=== PATIENT | female | born 1940 | race Caucasian/White ===

== ENCOUNTER 2017-09-28 07:55 | Inpatient (IN) | payer MEDICARE ==
[2017-09-28] VITALS (13 sets, daily range): BP systolic 149–208; BP diastolic 68–124; PULSE 64–91; RESP 18; TEMP 97.8–98.8; O2SAT 94–100
[~2017-09-28] VITALS: Ht 160 cm; Wt 56.6 kg
[2017-09-28] MEDS ORDERED: LABETALOL HCL 100 MG/20 ML VIAL IV PUSH ONE (08:15)
[2017-09-28] MEDS ORDERED: NATE120T PO (08:17)
[2017-09-28] MEDS ORDERED: OMEP20TA93 PO (08:17)
[2017-09-28] MEDS ORDERED: GABA100C4 PO (08:17)
[2017-09-28] MEDS ORDERED: TEMA7.5C PO (08:17)
[2017-09-28] MEDS ORDERED: LEVO125T4 PO (08:17)
[2017-09-28] MEDS ORDERED: MAGN400T2 PO (08:17)
[2017-09-28] MEDS ORDERED: ALBU0.08 NEB (08:17)
[2017-09-28] MEDS ORDERED: FURO1TAB60 PO (08:17)
[2017-09-28] MEDS ORDERED: CALTCHW5 PO (08:17)
[2017-09-28] MEDS ORDERED: ATOR40TA16 PO (08:17)
[2017-09-28] MEDS ORDERED: DOCU100C15 PO (08:17)
[2017-09-28] MEDS ORDERED: CALC0.25 PO (08:17)
--- NOTE | 2017-09-28 08:22 | PD ---
HPI Chief Complaint: stroke alert Time Seen by Provider: 08:02 Travel History International Travel<30 days: No Contact w/Intl Traveler<30days: No Traveled to known affect area: No History of Present Illness HPI This patient was brought in as a stroke alert. [facility] to the [facility] because staff there reported a left-sided facial droop and left arm weakness. They reported a duration 30 minutes since she was last seen normal. Paramedics never saw the droop, it had resolved before they arrived. They did note left arm weakness and brought her in. However her left arm weakness has resolved before she gets her period she arrives with no active neurologic deficit and therefore is not a stroke alert anymore. She does not meet any criteria for TPA with no deficit. She reports that she had a stroke 4 years ago. Unfortunately she takes no daily aspirin and continues to smoke. Symptoms were of moderate severity but resolved spontaneously. No alleviating factors. Symptoms likely exacerbated by her continued smoking and noncompliance with basic stroke recommendations. She denies headache. Arrival her blood pressure is 190/125. PFSH Past Medical History Blood Disorders: No Anxiety: Yes Depression: Yes Cancer: No Cardiovascular Problems: Yes Chemotherapy: No Chest Pain: Yes Cerebrovascular Accident: Yes Diabetes: Yes GERD: Yes Genitourinary: No Headaches: Yes Hypertension: Yes Musculoskeletal: No Psychiatric: Yes Respiratory: No Thyroid Disease: Yes (THYROIDISM) Past Surgical History Abdominal Surgery: Yes (HYSTERECTOMY.APPENDECTOMY) Pacemaker: No Social History Alcohol Use: Yes (OCC.) Tobacco Use: Yes (1PKG A DAY) Substance Use: No Allergies-Medications (Allergen,Severity, Reaction): Coded Allergies: Sulfa (Sulfonamide Antibiotics) (Unverified Allergy, Severe, 09/28/17) cephalexin (Unverified Allergy, Severe, 09/28/17) codeine (Unverified Allergy, Severe, 09/28/17) penicillin G (Unverified Allergy, Severe, 09/28/17) Reported Meds & Prescriptions Reported Meds & Active Scripts Active Reported Temazepam 7.5 Mg Cap 7.5 Mg PO HS PRN Levothyroxine (Levothyroxine Sodium) 125 Mcg Tab 125 Mcg PO DAILY Docusate Sodium 100 Mg Cap 100 Mg PO BID PRN Lasix (Furosemide) 40 Mg Tab 40 Mg PO DAILY Nateglinide 120 Mg Tab 120 Mg PO TIDAC Omeprazole 20 Mg Tab 20 Mg PO DAILY PRN Atorvastatin (Atorvastatin Calcium) 40 Mg Tab 40 Mg PO HS Albuterol Neb (Albuterol Sulfate) 2.5 Mg/3 Ml Neb 2.5 Mg NEB Q6HR PRN Gabapentin 100 Mg Cap 100 Mg PO BID Caltrate 600+D Chew (Calcium Carbonate-Vitamin D Chew) 600-400 Mg-Unit Chew 1 Tab PO BID Calcitriol 0.25 Mcg Cap 0.25 Mcg PO DAILY Magnesium Oxide 400 Mg Tab 400 Mg PO DAILY Review of Systems General / Constitutional: No: Fever Eyes: No: Visual changes HENT: No: Headaches Cardiovascular: No: Chest Pain or Discomfort Respiratory: No: Shortness of Breath Gastrointestinal: No: Abdominal Pain Genitourinary: No: Dysuria Musculoskeletal: Positive: Weakness, No: Pain Skin: No Rash Neurologic: Positive: Weakness Psychiatric: No: Depression Endocrine: No: Polydipsia Hematologic/Lymphatic: No: Easy Bruising Physical Exam Narrative GENERAL: Well-nourished, well-developed patient in no apparent distress smelling of nicotine. SKIN: Focused skin assessment reveals no rash and nodules. Skin is Warm and dry. HEAD: Atraumatic. Normocephalic. EYES: Pupils equal and round. No scleral icterus. No injection or drainage. ENT: No nasal bleeding or discharge. Mucous membranes pink and moist. NECK: Trachea midline. No JVD. CARDIOVASCULAR: Regular rate and rhythm. No murmur appreciated. RESPIRATORY: No accessory muscle use. Clear to auscultation. Breath sounds equal bilaterally. GASTROINTESTINAL: Abdomen soft, non-tender, nondistended. Hepatic and splenic margins not palpable. MUSCULOSKELETAL: No obvious deformities. No clubbing. No cyanosis. No edema. NEUROLOGICAL: Awake and alert. No obvious cranial nerve deficits. Motor grossly within normal limits. Normal speech. PSYCHIATRIC: Appropriate mood and affect; insight and judgment poor . Data Data Last Documented VS Vital Signs Date Time Temp Pulse Resp B/P (MAP) Pulse Ox O2 Delivery O2 Flow Rate FiO2 09/28/17 08:33 98.8 86 18 189/124 (145) 100 09/28/17 07:58 Room Air Orders Orders Ct Brain W/O Iv Contrast(Rout) (09/28/17 ) Iv Access Insert/Monitor (09/28/17 08:02) Complete Blood Count With Diff (09/28/17 08:02) Basic Metabolic Panel (Bmp) (09/28/17 08:02) Prothrombin Time / Inr (Pt) (09/28/17 08:02) Act Partial Throm Time (Ptt) (09/28/17 08:02) Electrocardiogram (09/28/17 ) Generator Mechanic / Telemetry JACE.Q8H (09/28/17 08:02) Labetalol Inj (Trandate Inj) (09/28/17 08:15) Potassium Chloride (Kcl) (09/28/17 10:45) Potassium Chloride (Kcl) (09/28/17 10:45) Magnesium (Mg) (09/28/17 10:33) Albuterol Neb (Albuterol Neb) (09/28/17 10:45) Atorvastatin (Lipitor) (09/28/17 21:00) Calcitriol (Rocaltrol) (09/29/17 09:00) Gabapentin (Neurontin) (09/28/17 21:00) Levothyroxine (Synthroid) (09/29/17 09:00) Magnesium Oxide (Mag-Ox) (09/29/17 09:00) (Nf) Calcium Carbonate-Vitamin D Chew (C (09/28/17 21:00) (Nf) Nateglinide (09/28/17 12:00) (Nf) Omeprazole (09/28/17 10:45) Nicotine 21 Mg Patch.24 Hr (Habitrol 21 (09/28/17 10:45) Remove Old Patch (09/28/17 10:45) Admit Order (Ed Use Only) (09/28/17 10:37) Labs Laboratory Tests Test 09/28/17 08:17 White Blood Count 14.2 TH/MM3 Red Blood Count 3.63 MIL/MM3 Hemoglobin 11.8 GM/DL Hematocrit 34.6 % Mean Corpuscular Volume 95.2 FL Mean Corpuscular Hemoglobin 32.5 PG Mean Corpuscular Hemoglobin Concent 34.1 % Red Cell Distribution Width 14.0 % Platelet Count 540 TH/MM3 Mean Platelet Volume 7.8 FL Neutrophils (%) (Auto) 60.9 % Lymphocytes (%) (Auto) 27.9 % Monocytes (%) (Auto) 8.2 % Eosinophils (%) (Auto) 1.5 % Basophils (%) (Auto) 1.5 % Neutrophils # (Auto) 8.6 TH/MM3 Lymphocytes # (Auto) 4.0 TH/MM3 Monocytes # (Auto) 1.2 TH/MM3 Eosinophils # (Auto) 0.2 TH/MM3 Basophils # (Auto) 0.2 TH/MM3 CBC Comment DIFF FINAL Differential Comment Prothrombin Time 10.0 SEC Prothromb Time International Ratio 0.9 RATIO Activated Partial Thromboplast Time 29.2 SEC Blood Urea Nitrogen 16 MG/DL Creatinine 0.52 MG/DL Random Glucose 117 MG/DL Calcium Level 8.7 MG/DL Sodium Level 133 MEQ/L Potassium Level 3.1 MEQ/L Chloride Level 98 MEQ/L Carbon Dioxide Level 28.7 MEQ/L Anion Gap 6 MEQ/L Estimat Glomerular Filtration Rate 115 ML/MIN [facility] Medical Decision Making Medical Screen Exam Complete: Yes Emergency Medical Condition: Yes Medical Record Reviewed: Yes Differential Diagnosis Ischemic CVA, hemorrhagic CVA, TIA, hypertensive emergency Narrative Course I have reviewed the patient's electronic medical record. I reviewed her [facility] paperwork. She is on no aspirin or blood thinners IV placed I gave her 10 mg IV labetalol as even in the face of possible ischemic neurologic disease her diastolic exceeds 120 and therefore is treated. I reviewed her EKG which shows sinus rhythm with no ST elevation or ectopy Extended cardiac monitoring reveals sinus rhythm without ectopy Accu-Chek 104 CBC is normal Metabolic profile shows hypokalemia of 3.1 Coagulation studies are normal Brain CT shows small vessel ischemic disease without hemorrhage She has no neurologic deficit on exam. Her NIH stroke scale is 0. Blood pressure is improved but still elevated but will be watched closely I gave her an aspirin Case reviewed with hospitalist will admit for neurologic evaluation as well as hypertensive urgency Diagnosis Primary Impression: TIA (transient ischemic attack) Qualified Codes: G45.9 - Transient cerebral ischemic attack, unspecified Additional Impression: Hypertensive urgency Admitting Information Admitting Physician Requests: Admit Justin Victoria MD Sep 28, 2017 08:22
[2017-09-28 08:24] LABS: AUTOMATED NEUTROPHIL # 8.6 TH/MM3 (1.8-7.7); BASOPHIL # 0.2 TH/MM3 (0-0.2); BASOPHIL % 1.5 % (0.0-2.0); EOSINOPHIL # 0.2 TH/MM3 (0-0.4); EOSINOPHIL % 1.5 % (0.0-4.0); HEMATOCRIT 34.6 % (35.0-46.0); HEMO FLAGS DIFF FINAL; LYMPH % 27.9 % (9.0-44.0); MEAN CELL VOLUME 95.2 FL (80.0-100.0); MEAN CORPUSCULAR HEMOGLOBIN 32.5 PG (27.0-34.0); MEAN CORPUSCULAR HGB CONC 34.1 % (32.0-36.0); MONO % 8.2 % (0.0-8.0); NEUT % 60.9 % (16.0-70.0); PLATELET COUNT 540 TH/MM3 (150-450); RED BLOOD COUNT 3.63 MIL/MM3 (4.00-5.30); WHITE BLOOD COUNT 14.2 TH/MM3 (4.0-11.0)
--- NOTE | 2017-09-28 08:26 | RADRPT ---
EXAM DATE/TIME: 09/28/2017 08:03 [facility] COMPARISON: No previous studies available for comparison. INDICATIONS : Left sided weakness, since resolved. RADIATION DOSE: 69.28 CTDIvol (mGy) This report was called by Aleja Victoria at 824 MEDICAL HISTORY : Cardiovascular disease. Hypertension. SURGICAL HISTORY : Appendectomy. Hysterectomy. ENCOUNTER: Initial ACUITY: 1 day PAIN SCALE: 0/10 LOCATION: cranial TECHNIQUE: Multiple contiguous axial images were obtained of the head. Using automated exposure control and adj ustment of the mA and/or kV according to patient size, radiation dose was kept as low as reasonably a chievable to obtain optimal diagnostic quality images. DICOM format image data is available electro nically for review and comparison. FINDINGS: CEREBRUM: The ventricles are enlarged. Hypodensity is seen throughout the cerebral white matter. No evidence of midline shift, mass lesion, hemorrhage or acute infarction. No extra-axial fluid collections are se en. POSTERIOR FOSSA: The cerebellum and brainstem are intact. The 4th ventricle is midline. The cerebellopontine angle i s unremarkable. EXTRACRANIAL: The visualized portion of the orbits is intact. SKULL: The calvaria is intact. No evidence of skull fracture. CONCLUSION: 1. Central volume loss with chronic white matter changes characteristic of microvascular ischemic dis ease. 2. No evidence of acute infarct, hemorrhage, mass or edema. Rich Ayala MD on September 28, 2017 at 8:19 Board Certified Radiologist. This report was verified electronically.
[2017-09-28 08:37] LABS: APTT (PATIENT) 29.2 SEC (24.3-30.1); INTERNATIONAL NORMALIZED RATIO 0.9 RATIO
[2017-09-28 08:49] LABS: BICARBONATE 28.7 MEQ/L (21.0-32.0); POTASSIUM 3.1 MEQ/L (3.5-5.1)
[2017-09-28] MEDS ORDERED: SODIUM CHLOR 0.9% 1000 ML INJ 1,000 ML IV SCH (10:36)
[2017-09-28] MEDS ORDERED: RESP: ALBUTEROL 2.5 MG/3 ML NEB (PRN) NEB (10:45)
[2017-09-28] MEDS ORDERED: ACETAMINOPHEN 325 MG TAB PO PRN (10:45)
[2017-09-28] MEDS ORDERED: PANTOPRAZOLE SOD 20 MG DELAYED RELEASE TAB PO PRN (10:45)
[2017-09-28] MEDS ORDERED: SODIUM CHLORIDE 0.9% FLUSH 5 ML FLUSH IV FLUSH PRN (10:45)
[2017-09-28] MEDS ORDERED: POTASSIUM CHLORIDE 20 MEQ CONTROLLED RELEASE TAB PO ONE (10:45)
[2017-09-28] MEDS ORDERED: ONDANSETRON HCL 4 MG/2 ML VIAL IVP PRN (10:45)
[2017-09-28] MEDS ORDERED: MAGNESIUM HYDROXIDE SUSP 30 ML CUP PO PRN (10:45)
[2017-09-28] MEDS ORDERED: SODIUM CHLORIDE 0.9% FLUSH 10 ML FLUSH IV FLUSH PRN (10:45)
[2017-09-28] MEDS ORDERED: LACTULOSE SYRUP 20 GM/30 ML CUP PO PRN (10:45)
[2017-09-28] MEDS ORDERED: NALOXONE HCL 0.4 MG/ML AMP IV PUSH PRN (10:45)
[2017-09-28] MEDS ORDERED: GLUCAGON 1 MG/ML VIAL OTHER PRN (10:45)
[2017-09-28] MEDS ORDERED: SENNOSIDES 8.6 MG TAB PO PRN (10:45)
[2017-09-28] MEDS ORDERED: LABETALOL HCL 100 MG/20 ML VIAL IV PUSH PRN (10:45)
[2017-09-28] MEDS ORDERED: POTASSIUM CHLORIDE 10 MEQ CONTROLLED RELEASE TAB PO ONE (10:45)
[2017-09-28] MEDS ORDERED: DEXTROSE 50% IN WATER 50 ML VIAL(D50) IV PUSH PRN (10:45)
[2017-09-28] MEDS ORDERED: ASPIRIN 325 MG TAB PO ONE (10:45)
[2017-09-28] MEDS ORDERED: BISACODYL 10 MG SUPP RECTAL PRN (10:45)
--- NOTE | 2017-09-28 10:46 | HHI.HP ---
[facility] Unknown Admission Diagnosis Diagnoses: Chief Complaint: left facial droop, left sided weakness Travel History International Travel<30 Days: No Contact w/Intl Traveler <30 Da: No Traveled to Known Affected Are: No History of Present Illness Written by Jazzmine Lang, acting as scribe for Dr. James on 09/28/17 at 10: 58. This note was transcribed by scribe Jazzmine Lang. I, Dr. Niall James personally performed the history, physical exam, and medical decision making; and confirmed the accuracy of the information in the transcribed note. Authenticated by Dr. Niall James on 09/28/17 at 11:07. 77-year-old female with history of hypertension, hyperlipidemia, diabetes mellitus, tobacco use, COPD, CVA, hypothyroidism, GERD, presents from [facility] as a stroke alert with acute onset of left facial droop and left arm weakness 30minutes prior to arrival. Symptoms completely resolved by the time the patient arrived to the ER, therefore stroke alert was cancelled and no TPA was given. The patient states she was sitting up in a chair this morning and she just felt "something strange" as if she was "going to nothing". She tried to call out for the nurse. She states she felt so weak that she could hardly get a breath. The patient does not recall any facial droop or unilateral numbness/weakness however nurse from [facility] reported left facial droop, drooling, and left arm weakness. The patient reports she has been having intermittent frontal headaches recently, rated 8-9/10, associated with some nausea but no vomiting. She states these are her typical headaches, usually relieved by Excedrin. Denies any recent fevers. She does not take any blood thinners. She continues to smoke tobacco. The patient reports she has been at [facility] for right leg weakness and falls. She states she is mostly wheelchair bound because of the weakness. She has no other medical complaints at this time. Review of Systems Except as stated in HPI: all other systems reviewed are Neg Past Family Social History Past Medical History Anxiety Depression CVA Diabetes Mellitus Hypertension Hypothyroidism GERD COPD Past Surgical History Hysterectomy Appendectomy Reported Medications Temazepam 7.5 Mg Cap 7.5 Mg PO HS PRN Levothyroxine (Levothyroxine Sodium) 125 Mcg Tab 125 Mcg PO DAILY Docusate Sodium 100 Mg Cap 100 Mg PO BID PRN Lasix (Furosemide) 40 Mg Tab 40 Mg PO DAILY Nateglinide 120 Mg Tab 120 Mg PO TIDAC Omeprazole 20 Mg Tab 20 Mg PO DAILY PRN Atorvastatin (Atorvastatin Calcium) 40 Mg Tab 40 Mg PO HS Albuterol Neb (Albuterol Sulfate) 2.5 Mg/3 Ml Neb 2.5 Mg NEB Q6HR PRN Gabapentin 100 Mg Cap 100 Mg PO BID Caltrate 600+D Chew (Calcium Carbonate-Vitamin D Chew) 600-400 Mg-Unit Chew 1 Tab PO BID Calcitriol 0.25 Mcg Cap 0.25 Mcg PO DAILY Magnesium Oxide 400 Mg Tab 400 Mg PO DAILY Allergies: Coded Allergies: Sulfa (Sulfonamide Antibiotics) (Unverified Allergy, Severe, 09/28/17) cephalexin (Unverified Allergy, Severe, 09/28/17) codeine (Unverified Allergy, Severe, 09/28/17) penicillin G (Unverified Allergy, Severe, 09/28/17) Active Ordered Medications Current Medications Medications (Trade) Dose Ordered Sig/Junior Route Start Time Stop Time Status Last Admin (Albuterol Neb) 2.5 mg Q6HR NEB PRN NEB 09/28/17 10:45 (Lipitor) 40 mg HS PO 09/28/17 21:00 (Rocaltrol) 0.25 mcg DAILY PO 09/29/17 09:00 (Neurontin) 100 mg BID PO 09/28/17 21:00 (Synthroid) 125 mcg DAILY@0600 PO 09/29/17 06:00 (Mag-Ox) 400 mg DAILY PO 09/29/17 09:00 (Oscal-D 250-125) 500 mg BID PO 09/28/17 21:00 Patient Own Medication PT OWN MED: NATEGLIN... TIDAC PO 09/28/17 12:00 Future Hold (Protonix) 20 mg DAILY PRN PO 09/28/17 10:45 (Habitrol 21 Mg Patch.24 Hr) 1 patch DAILY T-DERMAL 09/28/17 10:45 Miscellaneous Information 1 DAILY T-DERMAL 09/29/17 09:00 Sodium Chloride 1,000 ml @ 70 mls/hr [id number] IV 09/28/17 10:36 (Vasotec Inj) 1.25 mg Q4H PRN IV PUSH 09/28/17 10:45 (Trandate Inj) 10 mg Q2H PRN IV PUSH 09/28/17 10:45 (Aspirin) 325 mg DAILY PO 09/29/17 09:00 (D50w (Vial) Inj) 50 ml UNSCH PRN IV PUSH 09/28/17 10:45 (Glucagon Inj) 1 mg UNSCH PRN OTHER 09/28/17 10:45 (NovoLOG SUPPLEMENTAL SCALE) 1 ACHS SLIDING SCALE SQ 09/28/17 12:00 (NS Flush) 2 ml UNSCH PRN IV FLUSH 09/28/17 10:45 (NS Flush) 2 ml BID IV FLUSH 09/28/17 21:00 (Tylenol) 650 mg Q4H PRN PO 09/28/17 10:45 (Zofran Inj) 4 mg Q6H PRN IVP 09/28/17 10:45 (Tylenol) 650 mg Q6H PRN PO 09/28/17 10:45 (Narcan Inj) 0.4 mg UNSCH PRN IV PUSH 09/28/17 10:45 (Mervat-Colace) 1 tab BID PO 09/28/17 21:00 (Milk Of Magnesia Liq) 30 ml Q12H PRN PO 09/28/17 10:45 (Senokot) 17.2 mg Q12H PRN PO 09/28/17 10:45 (Dulcolax Supp) 10 mg DAILY PRN RECTAL 09/28/17 10:45 (Lactulose Liq) 30 ml DAILY PRN PO 09/28/17 10:45 Family History Denies any family history of stroke Social History Smokes tobacco, 1 PPD Occasional Alcohol Use Denies any illicit drug use , 6months ago Physical Exam Vital Signs Vital Signs Date Time Temp Pulse Resp B/P (MAP) Pulse Ox O2 Delivery O2 Flow Rate FiO2 09/28/17 08:33 98.8 86 18 189/124 (145) 100 09/28/17 07:58 98.8 86 18 189/124 (145) 100 Room Air 09/28/17 07:58 86 18 100 Room Air Physical Exam GENERAL: Well-nourished, well-developed elderly female patient in [facility]. SKIN: Warm and dry. No rash. HEAD: Normocephalic. Atraumatic. EYES: Pupils equal and round. No scleral icterus. No injection or drainage. ENT: No nasal bleeding or discharge. Mucous membranes pink and moist. NECK: Supple. Trachea midline. CARDIOVASCULAR: Regular rate and rhythm. S1, S2 noted. No murmur appreciated. RESPIRATORY: No accessory muscle use. Clear to auscultation. Breath sounds equal bilaterally. GASTROINTESTINAL: Abdomen soft, non-tender, nondistended. Normoactive bowel sounds x4. MUSCULOSKELETAL: No obvious deformities. 1+ bilateral lower extremity pitting edema. NEUROLOGICAL: Awake and alert. No obvious cranial nerve deficits. Motor grossly within normal limits. 5/5 muscle strength in bilateral upper extremities , 5/5 strength bilateral plantar/dorsiflexion, however difficulty raising right leg against resistance. Normal speech. No facial droop, lid lag, tongue deviation. PSYCHIATRIC: Appropriate mood and affect; insight and judgment normal. Laboratory Laboratory Tests Test 09/28/17 08:17 White Blood Count 14.2 Red Blood Count 3.63 Hemoglobin 11.8 Hematocrit 34.6 Mean Corpuscular Volume 95.2 Mean Corpuscular Hemoglobin 32.5 Mean Corpuscular Hemoglobin Concent 34.1 Red Cell Distribution Width 14.0 Platelet Count 540 Mean Platelet Volume 7.8 Neutrophils (%) (Auto) 60.9 Lymphocytes (%) (Auto) 27.9 Monocytes (%) (Auto) 8.2 Eosinophils (%) (Auto) 1.5 Basophils (%) (Auto) 1.5 Neutrophils # (Auto) 8.6 Lymphocytes # (Auto) 4.0 Monocytes # (Auto) 1.2 Eosinophils # (Auto) 0.2 Basophils # (Auto) 0.2 CBC Comment DIFF FINAL Differential Comment Prothrombin Time 10.0 Prothromb Time International Ratio 0.9 Activated Partial Thromboplast Time 29.2 Blood Urea Nitrogen 16 Creatinine 0.52 Random Glucose 117 Calcium Level 8.7 Sodium Level 133 Potassium Level 3.1 Chloride Level 98 Carbon Dioxide Level 28.7 Anion Gap 6 Estimat Glomerular Filtration Rate 115 Result Diagram: 09/28/17 0817 09/28/17 0817 Imaging Last Impressions Head CT 09/28/17 0000 Signed Impressions: Service Date/Time: Thursday, September 28, 2017 08:03 - CONCLUSION: 1. Central volume loss with chronic white matter changes characteristic of microvascular ischemic disease. 2. No evidence of acute infarct, hemorrhage, mass or edema. MD Pito Roman VTE Risk Assessment Caprini VTE Risk Assessment: Mod/High Risk (score >= 2) Caprini Risk Assessment Model Point Value = 1 Point Value = 2 Point Value = 3 Point Value = 5 Age 41-60 Minor surgery BMI > 25 kg/m2 Swollen legs Varicose veins or History of unexplained or recurrent spontaneous Oral contraceptives or hormone replacement Sepsis (< 1 month) Serious lung disease, including pneumonia (< 1 month) Abnormal pulmonary function Acute myocardial infarction Congestive heart failure (< 1 month) History of inflammatory bowel disease Medical patient at bed rest Age 61-74 Arthroscopic surgery Major open surgery (> 45 min) Laparoscopic surgery (> 45 min) Malignancy Confined to bed (> 72 hours) Immobilizing plaster cast Central venous access Age >= 75 History of VTE Family history of VTE Factor V Leiden Prothrombin [id number] Lupus anticoagulant Anticardiolipin antibodies Elevated serum homocysteine Heparin-induced thrombocytopenia Other congenital or acquired thrombophilia Stroke (< 1 month) Elective arthroplasty Hip, pelvis, or leg fracture Acute spinal cord injury (< 1 month) Prophylaxis Regimen Total Risk Factor Score Risk Level Prophylaxis Regimen 0-1 Low Early ambulation 2 Moderate Order ONE of the following: *Sequential Compression Device (SCD) *Heparin 5000 units SQ BID 3-4 Higher Order ONE of the following medications: *Heparin 5000 units SQ TID *Enoxaparin/Lovenox 40 mg SQ daily (WT < 150 kg, CrCl > 30 mL/min) *Enoxaparin/Lovenox 30 mg SQ daily (WT < 150 kg, CrCl > 10-29 mL/min) *Enoxaparin/Lovenox 30 mg SQ BID (WT < 150 kg, CrCl > 30 mL/min) AND/OR *Sequential Compression Device (SCD) 5 or more Highest Order ONE of the following medications: *Heparin 5000 units SQ TID (Preferred with Epidurals) *Enoxaparin/Lovenox 40 mg SQ daily (WT < 150 kg, CrCl > 30 mL/min) *Enoxaparin/Lovenox 30 mg SQ daily (WT < 150 kg, CrCl > 10-29 mL/min) *Enoxaparin/Lovenox 30 mg SQ BID (WT < 150 kg, CrCl > 30 mL/min) AND *Sequential Compression Device (SCD) Assessment and Plan Problem List: (1) TIA (transient ischemic attack) ICD Code: G45.9 - Transient cerebral ischemic attack, unspecified Status: Acute (2) Hypertensive urgency ICD Code: I16.0 - Hypertensive urgency Status: Acute Assessment and Plan 77-year-old female with history of HTN, HLD, DM, COPD, CVA, tobacco use, hypothyroidism, GERD, presents from [facility] as a stroke alert with acute onset of left facial droop and left arm weakness 30minutes prior to arrival. TIA: rule out CVA. +left facial droop and left arm weakness prior to arrival, now resolved. No TPA given. -Head CT images reviewed, shows central volume loss with chronic white matter changes characteristic of microvascular ischemic disease; no acute infarct/hemorrhage -EKG reviewed, shows sinus rhythm -Check brain MRI, head MRA, carotid U/S, echocardiogram, holter monitor -Check lipid panel, HgbA1c -Monitor neuro checks -Monitor on telemetry -Allow permissive hypertension until CVA rule out -Start on aspirin, continue statin -Consult stroke navigator, PT/OT/ST -Consult neurology Hypertensive Urgency secondary to Accelerated Hypertension: BP 190s/120s upon arrival. With neurological deficit as above. -S/p IV Labetalol 10mg x1 in the ED, BP improved to 160s/80s -allowing permissive hypertension as above -IV labetalol and IV vasotec prn SBP > 220 Diabetes Mellitus: chronic -check HgbA1c -monitor Accu-checks, cover with SSI Hyperlipidemia: chronic -check lipid panel -continue patient's statin Leukocytosis: WBC 14.2 K, unclear etiology -check UA and CXR -repeat CBC in am Hyponatremia: Na 133 upon arrival, suspect component of dehydration -give IVF with NS at 70cc/hr -repeat BMP in the am Hypokalemia: K 3.1, suspect secondary to patient's lasix -holding lasix for now -given po KCl replacement -repeat BMP in the am Tobacco Use: chronic -counseled on cessation -nicotine patch All other medical conditions stable, continue home medications as appropriate. DVT Prophylaxis: teds/SCDs Code Status Full Code Discussed Condition With Patient, ER MD, CDU RN Problem Qualifiers (1) TIA (transient ischemic attack): Qualified Codes: G45.9 - Transient cerebral ischemic attack, unspecified Jazzmine Lang PA-C Sep 28, 2017 10:46 Niall James MD Sep 28, 2017 11:08
[2017-09-28] MEDS: NICOTINE 21 MG/24 HR PATCH T-DERMAL SCH (11:58)
[2017-09-28] MEDS ORDERED: NATEGLINIDE 120 MG PO SCH (12:00)
[2017-09-28] MEDS: INSULIN ASPART SUPPLEMENTAL SCALE SQ SCH ×3 (12:00→21:00)
[2017-09-28] MEDS ORDERED: [UNRECOGNIZED DRUG - OTHER] PO SCH (12:00)
--- NOTE | 2017-09-28 12:24 | RADRPT ---
EXAM DATE/TIME: 09/28/2017 11:16 [facility] COMPARISON: No previous studies available for comparison. INDICATIONS : Confusion. Right lower extremity weakness. MEDICAL HISTORY : Hypertension. Diabetes mellitus type 2. SURGICAL HISTORY : Tonsillectomy. Hysterectomy. Appendectomy. ENCOUNTER: Initial ACUITY: 1 day PAIN SCORE: 0/10 LOCATION: cranial Please note a normal MRA of the brain does not entirely exclude the possibility of a small aneurysm, nor the possibility of distal intracranial vessel disease. TECHNIQUE: 3D time of flight MRA was performed. Source images, multiplanar STS MIP, and 3D volume MIP reconstru ctions were reviewed. FINDINGS: There is excellent visualization of the major intracranial arteries out to the second-order branch ve ssels. A 1.5 mm saccular projection is identified of the proximal right anterior cerebral artery. Vessels are otherwise unremarkable. Pleural surfaces are smooth. There is no evidence of irregularity or stenosis. There are no cerebral filling defects. Right vertebral artery is dominant. CONCLUSION: 1. 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 2. Otherwise normal MRA. Rich Ayala MD on September 28, 2017 at 12:15 Board Certified Radiologist. This report was verified electronically.
--- NOTE | 2017-09-28 12:29 | RADRPT ---
EXAM DATE/TIME: 09/28/2017 11:16 [facility] COMPARISON: No previous studies available for comparison. INDICATIONS : Confusion. Right lower extremity weakness. MEDICAL HISTORY : Diabetes mellitus type 2. Hypertension. SURGICAL HISTORY : Tonsillectomy. Appendectomy. Hysterectomy. ENCOUNTER: Initial ACUITY: 1 day PAIN SCORE: 0/10 LOCATION: cranial TECHNIQUE: Multiplanar, multisequence MRI of the brain was performed without contrast. FINDINGS: CEREBRUM: The ventricles are normal for age. A focus of restricted diffusion is identified along the cortical surface of the right insula. No evidence of midline shift, mass lesion, or hemorrhage. No extraaxial fluid collections are seen. The pituitary gland and suprasellar cistern are normal in configuration . WHITE MATTER: Periventricular white matter, deep white matter and brainstem hyperintensity is evident. There is no evidence of associated mass effect or restricted diffusion. POSTERIOR FOSSA: The cerebellum and brainstem are intact. The 4th ventricle is midline. The cerebellopontine angle is unremarkable. The cerebellar tonsils are normal in position. DIFFUSION IMAGING: No other focal areas of restricted diffusion are seen. No evidence of acute infarction. EXTRACRANIAL: The visualized portions of the orbits and paranasal sinuses are unremarkable. CONCLUSION: 1. Moderate white matter hyperintensity in the brainstem and cerebral hemispheres characteristic of c hronic microvascular ischemic disease. 2. Tiny focus of restricted diffusion in the right insula which is adjacent to a middle cerebral nicanor ry vessel and may be artifactual. 3. No evidence of acute infarct or hemorrhage correspond to the patient's symptoms. Rich Ayala MD on September 28, 2017 at 12:23 Board Certified Radiologist. This report was verified electronically.
--- NOTE | 2017-09-28 13:13 | RADRPT ---
EXAM DATE/TIME: 09/28/2017 12:48 [facility] COMPARISON: No previous studies available for comparison. INDICATIONS : Cough MEDICAL HISTORY : Diabetes mellitus type 2. Hypertension. SURGICAL HISTORY : Tonsillectomy. Appendectomy. Hysterectomy. ENCOUNTER: Initial ACUITY: 1 day PAIN SCORE: 0/10 LOCATION: Bilateral chest FINDINGS: A single view of the chest demonstrates the lungs to be hyperinflated but clear of acute infiltrate. There are no effusions. There is some atherosclerotic calcification of the aortic arch and there may be some unusual calcification of the pulmonary artery is well. Heart size is prominent but well compe nsated. Osseous structures are intact with a mild levoscoliosis of the dorsal spine. CONCLUSION: 1. Lungs are hyperinflated but there is no acute infiltrate to explain current clinical symptoms. 2. Heart size is prominent but well compensated. 3. Calcification of the aortic arch. There may be some calcification of the pulmonary artery as well. Dylan Shepard MD on September 28, 2017 at 13:08 Board Certified Radiologist. This report was verified electronically.
--- NOTE | 2017-09-28 15:51 | RADRPT ---
EXAM DATE/TIME: 09/28/2017 14:27 [facility] COMPARISON: No previous studies available for comparison. INDICATIONS : Transient ischemic attack. MEDICAL HISTORY : Hypertension. Gastroesophageal reflux disease. Thyroidism. Left ear deafness. CVA. Chest pain. Diab etes. Depression. Anxiety. SURGICAL HISTORY : Hysterectomy. Appendectomy. Tonsillectomy. Right arm surgery x5. ENCOUNTER: Initial ACUITY: 1 day PAIN SCORE: 5/10 LOCATION: Bilateral neck PEAK SYSTOLIC VELOCITIES (cm/sec): ICA/CCA RATIO: Right: 1.7 Left: 1.2 ICA: Right: 91 Left: 90 CCA: Right: 53 Left: 75 ECA: Right: 107 Left: 86 VERTEBRAL: Right: 71 antegrade Left: 57 antegrade Elevated flow velocities and ICA/CCA ratios have been found to correlate with increased degrees of vessel stenosis, calculated as percentage of diameter relative to a normal segment of distal ICA/CCA FINDINGS: RIGHT CAROTID: Dense atherosclerotic calcification in the distal common carotid artery extending up into the bulb/bi furcation. The waveforms are within normal limits. LEFT CAROTID: Dense atherosclerotic calcification of the distal common carotid artery extending up into the bulb/bi furcation and left internal. The waveforms are within normal limits. VERTEBRAL ARTERIES: Antegrade flow is seen in both vertebral arteries. MISCELLANEOUS: None. CONCLUSION: 1. Dense atherosclerotic calcification in both distal common carotid arteries extending up into the b ifurcations. Calcification also extends up into the internal and the left. 2. Despite the dense calcification, no Doppler findings of a hemodynamically significant stenosis. An tegrade flow in both vertebral arteries Dylan Shepard MD on September 28, 2017 at 15:47 Board Certified Radiologist. This report was verified electronically.
[2017-09-28] MEDS: FUROSEMIDE 40 MG TAB PO SCH (16:46)
[2017-09-28] MEDS: POTASSIUM CHLORIDE 20 MEQ CONTROLLED RELEASE TAB PO SCH (16:46)
[2017-09-28] MEDS: ENALAPRILAT 1.25 MG/ML VIAL IV PUSH PRN (17:23)
[2017-09-28] MEDS: CALCIUM/VITAMIN D 250 MG/125 U TAB PO SCH (20:51)
[2017-09-28] MEDS: GABAPENTIN 100 MG CAP PO SCH (20:51)
[2017-09-28] MEDS: DOCUSATE SODIUM 50 MG/SENNA 8.6 MG TAB PO SCH (20:52)
[2017-09-28] MEDS ORDERED: SODIUM CHLORIDE 0.9% FLUSH 5 ML FLUSH IV FLUSH SCH (21:00)
[2017-09-28] MEDS ORDERED: SODIUM CHLORIDE 0.9% FLUSH 10 ML FLUSH IV FLUSH SCH (21:00)
[2017-09-28] MEDS ORDERED: ATORVASTATIN 40 MG TAB PO SCH (21:00)
[2017-09-29] VITALS (11 sets, daily range): BP systolic 126–221; BP diastolic 64–102; PULSE 82–89; RESP 16–22; TEMP 97.2–98.5; O2SAT 93–97
[2017-09-29] MEDS: ENALAPRILAT 1.25 MG/ML VIAL IV PUSH PRN (04:19)
[2017-09-29] MEDS: LEVOTHYROXINE SODIUM 100 MCG TAB PO SCH (04:58)
[2017-09-29] MEDS: LEVOTHYROXINE SODIUM 112 MCG TAB PO SCH (04:58)
[2017-09-29] MEDS: LEVOTHYROXINE SODIUM 50 MCG TAB PO SCH (04:58)
[2017-09-29 05:10] LABS: AUTOMATED NEUTROPHIL # 7.2 TH/MM3 (1.8-7.7); BASOPHIL # 0.1 TH/MM3 (0-0.2); BASOPHIL % 1.1 % (0.0-2.0); EOSINOPHIL # 0.3 TH/MM3 (0-0.4); EOSINOPHIL % 1.9 % (0.0-4.0); HEMATOCRIT 31.7 % (35.0-46.0); HEMO FLAGS DIFF FINAL; LYMPH % 36.4 % (9.0-44.0); LYMPHOCYTE # 4.9 TH/MM3 (1.0-4.8); MEAN CORPUSCULAR HEMOGLOBIN 31.5 PG (27.0-34.0); MEAN CORPUSCULAR HGB CONC 33.5 % (32.0-36.0); MONO % 7.5 % (0.0-8.0); NEUT % 53.1 % (16.0-70.0); PLATELET COUNT 519 TH/MM3 (150-450); RED BLOOD COUNT 3.37 MIL/MM3 (4.00-5.30); RED CELL DISTRIBUTION WIDTH 13.8 % (11.6-17.2); WHITE BLOOD COUNT 13.5 TH/MM3 (4.0-11.0)
[2017-09-29 05:36] LABS: ALT (GPT) 12 U/L (10-53); ANION GAP 6 MEQ/L (5-15); AST (GOT) 15 U/L (15-37); BICARBONATE 28.1 MEQ/L (21.0-32.0); BLOOD UREA NITROGEN 14 MG/DL (7-18); CHLORIDE 100 MEQ/L (98-107); GLOMERULAR FILTRATION RATE 123 ML/MIN (>89); POTASSIUM 3.7 MEQ/L (3.5-5.1); SODIUM (NA) 134 MEQ/L (136-145)
[2017-09-29 05:38] LABS: ALKALINE PHOSPHATASE 63 U/L (45-117); HDL CHOLESTEROL 49.4 MG/DL (40.0-60.0); LDL CHOLESTEROL 112 MG/DL (0-99); TOTAL BILIRUBIN ADULT LESS THAN 0.1 MG/DL (0.2-1.0)
[2017-09-29] MEDS ORDERED: LEVOTHYROXINE SODIUM 125 MCG TAB PO SCH (06:00)
[2017-09-29] MEDS ORDERED: SODIUM CHLOR 0.9% 1000 ML INJ 1,000 ML IV SCH (06:37)
[2017-09-29] MEDS ORDERED: GLUCAGON 1 MG/ML VIAL OTHER PRN (06:45)
[2017-09-29] MEDS ORDERED: DEXTROSE 50% IN WATER 50 ML VIAL(D50) IV PUSH PRN (06:45)
[2017-09-29] MEDS ORDERED: SODIUM CHLORIDE 0.9% FLUSH 5 ML FLUSH IV FLUSH PRN (06:45)
--- NOTE | 2017-09-29 07:27 | MB ---
cc: NEERAJ CISNEROS M.D. DATE OF CONSULTATION 09/29/2017 REASON FOR CONSULTATION TIA. HISTORY OF PRESENT ILLNESS Ms. Guerrero is a 77-year-old woman, resident of a [facility], who yesterday suddenly developed left-sided weakness. Initially a Stroke Alert was called. However, she had rapid resolution of the symptoms and the Stroke Alert was cancelled because of the resolution back to normal. She has continued to do well with no recurrent weakness on the left side. She denies any prior history of stroke or TIA. She has been hypertensive, in the ER blood of pressure 190/125 which has responded to Vasotec. PAST MEDICAL HISTORY 1. Remarkable for COPD. 2. Hyperlipidemia. 3. Diabetes. 4. Hypertension. 5. Hypothyroidism. 6. Gastroesophageal reflux disease. 7. Anxiety, depression. 8. Hysterectomy. 9. Appendectomy. MEDICATIONS Her medications in the [facility] - 1. Temazepam. 2. Levothyroxine. 3. Docusate. 4. Lasix. 5. Notaglamide. 6. Omeprazole. 7. Atorvastatin. 8. Albuterol. 9. Gabapentin. 10. Caltrate. 11. Calcitriol. ALLERGIES SULFA. CEPHALEXIN. CODEINE. PENICILLIN. NEUROLOGIC EXAMINATION VITAL SIGNS: Blood pressure is 196/91, pulse 85, respiratory rate is 18, temperature 97 degrees. HIGHER CORTICAL FUNCTION: She is alert, oriented. She follows commands. Speech is normal. CRANIAL NERVES: Intact. There is no facial asymmetry. MOTOR EXAMINATION: She demonstrates 5/5 strength of all major groups in both upper and lower extremities. There is no drift. Fine motor skills normal. REFLEXES: Symmetric. CEREBELLAR TESTING: Normal with no dysmetria, no ataxia. IMAGING STUDIES CT scan of the brain shows atrophy, chronic ischemic change. No acute change present. MRI of the brain - No evidence of any definite acute infarction. There was a small area of restricted diffusion in the right insula adjacent to the MCA, may be artifactual. MRA brain is normal except for a tiny atypical aneurysm in the proximal right KAIT but there is no evidence of any large vessel occlusion. The aneurysm measures 1.5 mm. Carotid ultrasound shows calcification in the carotids but no evidence of any significant stenosis. LABORATORY DATA The white count is 13,500, hemoglobin 10.6, hematocrit 31.7% platelet 519,000. PTT 10, INR 0.9, APTT 29.2. Sodium is 134, potassium 3.7, chloride 100, CO2 28, BUN is 14, creatinine 0.49, GFR is 123, AST 15, ALT is 12, cholesterol 227, LDL 112, triglycerides 329, HDL 49.4. EKG Sinus rhythm, first-degree AV block. IMPRESSION Right hemispheric TIA which has resolved completely. I agree that the patient was not a candidate for t-PA given the rapid resolution of symptoms. The MRI is reviewed. There is a small area of diffusion image in the right insula which could be artifactual but this may be represent a very tiny area of completed infarction which is asymptomatic since it does correlate with the side of probable ischemia which would have caused her left-sided weakness. RECOMMENDATIONS 1. At the present time would recommend obtaining echocardiogram, also monitor cardiac telemetry to be sure she does not have atrial fibrillation. 2. She has been started on aspirin. Continue aspirin. 3. Also I agree with the Lipitor given the high LDL. 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 Due to the very small size of the aneurysm, would recommend just following this, repeating an MRA in about 6 months. MD JAMES Calloway/EPIFANIO /6:39 AM /8:42 AM
[2017-09-29] MEDS: INSULIN ASPART SUPPLEMENTAL SCALE SQ SCH ×4 (08:00→20:21)
--- NOTE | 2017-09-29 08:22 | RADRPT ---
EXAM DATE/TIME: 09/29/2017 07:51 [facility] COMPARISON: No previous studies available for comparison. INDICATIONS : Right leg swelling. MEDICAL HISTORY : Hypercholesterolemia. Gastroesophageal reflux disease. Hypertension. CVA. Diabetes. SURGICAL HISTORY : Hysterectomy. Appendectomy. Tonsillectomy. Orthopedic surgery, right arm. ENCOUNTER: Initial ACUITY: 1 day PAIN SCORE: 0/10 LOCATION: Right leg. TECHNIQUE: Venous ultrasound of the leg was performed from the inguinal ligament to the proximal calf. Real-oliver e, color Doppler and spectral tracing, compression and augmentation techniques were used. FINDINGS: There is normal compressibility of the deep venous system from the inguinal region to the proximal ca lf. No echogenic clot is seen in the lumen of the common femoral, femoral, popliteal, and posterior tibial veins. There is a normal response of the venous system to proximal and distal augmentation an d respiration. CONCLUSION: Normal examination. Baljinder Croft Jr., MD on September 29, 2017 at 8:09 Board Certified Radiologist. This report was verified electronically.
[2017-09-29] MEDS ORDERED: ASPIRIN 325 MG TAB PO SCH (09:00)
[2017-09-29] MEDS: REMOVE OLD PATCH T-DERMAL SCH (09:00)
[2017-09-29] MEDS: SODIUM CHLORIDE 0.9% FLUSH 5 ML FLUSH IV FLUSH SCH ×2 (09:00→20:20)
[2017-09-29] MEDS: NICOTINE 21 MG/24 HR PATCH T-DERMAL SCH (09:32)
[2017-09-29] MEDS: POTASSIUM CHLORIDE 20 MEQ CONTROLLED RELEASE TAB PO SCH (09:33)
[2017-09-29] MEDS: ASPIRIN 81 MG CHEW TAB PO SCH (09:33)
[2017-09-29] MEDS: DOCUSATE SODIUM 50 MG/SENNA 8.6 MG TAB PO SCH ×2 (09:33→20:20)
[2017-09-29] MEDS: MAGNESIUM OXIDE 400 MG TAB PO SCH (09:34)
[2017-09-29] MEDS: CALCIUM/VITAMIN D 250 MG/125 U TAB PO SCH ×2 (09:35→20:21)
[2017-09-29] MEDS: GABAPENTIN 100 MG CAP PO SCH ×2 (09:35→20:21)
[2017-09-29] MEDS: FUROSEMIDE 40 MG TAB PO SCH (09:36)
[2017-09-29] MEDS ORDERED: amLODIPine BESYLATE 5 MG TAB PO ONE (10:15)
[2017-09-29] MEDS: CALCITRIOL 0.25 MCG CAP PO SCH (10:22)
--- NOTE | 2017-09-29 12:51 | HHI.PR ---
Subjective Remarks Follow-up TIA. Patient doing okay. Aware she will be started on aspirin and Norvasc, Lipitor will be increased as well as Synthroid and possibly be discharged later today if BP improves and echocardiogram unremarkable. Holter monitor has also been ordered. Tobacco cessation. Discussed with RN Objective Vitals Vital Signs Date Time Temp Pulse Resp B/P (MAP) Pulse Ox O2 Delivery O2 Flow Rate FiO2 09/29/17 11:54 97.2 88 22 195/95 (128) 95 09/29/17 08:00 83 09/29/17 07:30 98.5 88 20 182/84 (116) 95 Automatic Cuff 09/29/17 03:46 97.8 85 18 196/91 (126) 97 09/28/17 23:49 97.8 82 18 149/68 (95) 97 09/28/17 23:00 64 09/28/17 19:32 98.1 91 18 180/79 (112) 94 09/28/17 19:29 96 09/28/17 18:02 169/90 (116) 09/28/17 17:36 89 09/28/17 17:10 204/84 (124) 09/28/17 17:09 208/91 (130) 09/28/17 13:59 98.1 84 18 181/92 (121) 96 09/28/17 13:32 I/O 09/28/17 09/28/17 09/28/17 09/29/17 09/29/17 09/29/17 07:00 15:00 23:00 07:00 15:00 23:00 Intake Total 120 ml Balance 120 ml Intake Oral 120 ml # Voids 2 # Bowel Movements 0 Result Diagram: 09/29/17 0418 09/29/17 0418 Imaging Last Impressions Lower Extremity Ultrasound 09/29/17 0000 Signed Impressions: Service Date/Time: Friday, September 29, 2017 07:51 - CONCLUSION: Normal examination. Baljinder Croft Jr., MD Head Magnetic Resonance Angiography 09/28/17 0000 Signed Impressions: Service Date/Time: Thursday, September 28, 2017 11:16 - CONCLUSION: 1. 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 2. Otherwise normal MRA. Rich Ayala MD Head CT 09/28/17 0000 Signed Impressions: Service Date/Time: Thursday, September 28, 2017 08:03 - CONCLUSION: 1. Central volume loss with chronic white matter changes characteristic of microvascular ischemic disease. 2. No evidence of acute infarct, hemorrhage, mass or edema. Rich Ayala MD Chest X-Ray 09/28/17 0000 Signed Impressions: Service Date/Time: Thursday, September 28, 2017 12:48 - CONCLUSION: 1. Lungs are hyperinflated but there is no acute infiltrate to explain current clinical symptoms. 2. Heart size is prominent but well compensated. 3. Calcification of the aortic arch. There may be some calcification of the pulmonary artery as well. Dylan Shepard MD Carotid Artery Ultrasound 09/28/17 0000 Signed Impressions: Service Date/Time: Thursday, September 28, 2017 14:27 - CONCLUSION: 1. Dense atherosclerotic calcification in both distal common carotid arteries extending up into the bifurcations. Calcification also extends up into the internal and the left. 2. Despite the dense calcification, no Doppler findings of a hemodynamically significant stenosis. Antegrade flow in both vertebral arteries Dylan Shepard MD Brain MRI 09/28/17 0000 Signed Impressions: Service Date/Time: Thursday, September 28, 2017 11:16 - CONCLUSION: 1. Moderate white matter hyperintensity in the brainstem and cerebral hemispheres characteristic of chronic microvascular ischemic disease. 2. Tiny focus of restricted diffusion in the right insula which is adjacent to a middle cerebral artery vessel and may be artifactual. 3. No evidence of acute infarct or hemorrhage correspond to the patient's symptoms. Rich Ayala MD Objective Remarks GENERAL: Well-nourished, well-developed elderly female patient in [facility]. SKIN: Warm and dry. No rash. CARDIOVASCULAR: Regular rate and rhythm. S1, S2 noted. No murmur appreciated. RESPIRATORY: No accessory muscle use. Clear to auscultation. Breath sounds equal bilaterally. GASTROINTESTINAL: Abdomen soft, non-tender, nondistended. Normoactive bowel sounds x4. MUSCULOSKELETAL: No obvious deformities. 1+ bilateral lower extremity pitting edema. NEUROLOGICAL: Awake and alert. No obvious cranial nerve deficits. Motor grossly within normal limits. 5/5 muscle strength in bilateral upper extremities , 5/5 strength bilateral plantar/dorsiflexion, however difficulty raising right leg against resistance of and (chronic). Normal speech. No facial droop, lid lag, tongue deviation. PSYCHIATRIC: Appropriate mood and affect; insight and judgment normal. Procedures None A/P Problem List: (1) TIA (transient ischemic attack) ICD Code: G45.9 - Transient cerebral ischemic attack, unspecified Status: Acute (2) Hypertensive urgency ICD Code: I16.0 - Hypertensive urgency Status: Acute Assessment and Plan 77-year-old female with history of HTN, HLD, DM, COPD, CVA, tobacco use, hypothyroidism, GERD, presents from [facility] as a stroke alert with acute onset of left facial droop and left arm weakness 30minutes prior to arrival. TIA: rule out CVA. +left facial droop and left arm weakness prior to arrival, now resolved. No TPA given. -Head CT images reviewed, shows central volume loss with chronic white matter changes characteristic of microvascular ischemic disease; no acute infarct/hemorrhage -EKG reviewed, shows sinus rhythm -Unremarkable brain MRI, head MRA, carotid U/S is a tiny aneurysm which according to neurologist incidental repeat MRA in 6 months. Follow-up Echocardiogram, holter monitor -Ldl 112 increase Lipitor to 80 mg at bedtime, follow-up HgbA1c -Monitor neuro checks -Monitor on telemetry -Discontinue permissive hypertension -Continue aspirin -Consult stroke navigator, PT/OT/ST -Consulted neurology Hypertensive Urgency secondary to Accelerated Hypertension: BP 190s/120s upon arrival. With neurological deficit as above. Improving but suboptimal control. Start Norvasc -IV labetalol and IV vasotec prn SBP > 220 Diabetes Mellitus: chronic -check HgbA1c -monitor Accu-checks, cover with SSI Hyperlipidemia: chronic As above Leukocytosis: WBC 14.2 K, unclear etiology. Improving -check UA negative CXR Hyponatremia: Na 133 upon arrival, suspect component of dehydration -repeat BMP show sodium level is improving Hypokalemia: K 3.1, suspect secondary to patient's lasix -given po KCl replacement -repeat BMP shows improvement Tobacco Use: chronic -counseled on cessation -nicotine patch All other medical conditions stable, continue home medications as appropriate. DVT Prophylaxis: teds/SCDs Discharge Planning Discharge patient to inpatient rehabilitation versus SNF Condition on discharge: Improved Regular Diet as tolerated Ad Angela activity no driving Rx written: Aspirin, Lipitor, Norvasc and Synthroid Follow-up with primary care physician Problem Qualifiers (1) TIA (transient ischemic attack): Qualified Codes: G45.9 - Transient cerebral ischemic attack, unspecified Niall James MD Sep 29, 2017 12:51
[2017-09-29] MEDS ORDERED: SYNT112T PO (12:54)
[2017-09-29] MEDS ORDERED: POTA20TA5 PO (12:54)
[2017-09-29] MEDS ORDERED: ASPI81 PO (12:54)
[2017-09-29] MEDS ORDERED: AMLO5 PO (12:54)
[2017-09-29] MEDS ORDERED: LEVO.1 PO (12:54)
[2017-09-29] MEDS ORDERED: LEVO.05 PO (12:54)
[2017-09-29] MEDS ORDERED: ATOR80TA45 PO (12:54)
[2017-09-29] MEDS: cloNIDine HCL 0.1 MG TAB PO PRN (12:57)
--- NOTE | 2017-09-29 12:59 | HHI.DCPOC ---
Discharge Care Plan Diagnosis: (1) TIA (transient ischemic attack) (2) Aneurysm (3) Hypertensive urgency (4) Dyslipidemia Goals to Promote Your Health * To prevent worsening of your condition and complications * To maintain your health at the optimal level Directions to Meet Your Goals Please quit smoking Incidental finding of right cerebral artery aneurysm - please follow up with MRA in 6 months Take your medications as prescribed Follow your dietary instruction Follow activity as directed Keep your appointments as scheduled Take your immunizations and boosters as scheduled If your symptoms worsen call your PCP, if no PCP go to Urgent Care Center or Emergency Room Smoking is Dangerous to Your Health. Avoid second hand smoke Call the 24-hour hour crisis hotline for domestic abuse at Charity Soriano Sep 29, 2017 12:59
--- NOTE | 2017-09-29 17:42 | ECHRPT ---
Indication: CVA/TIA CONCLUSIONS Normal left ventricular size. Mild concentric left ventricular hypertrophy. The left ventricular systolic function is hyperdynamic with an estimated ejection fraction in the ra nge of 65- 70%. The left atrial size is moderately dilated. [id number] mitral valve regurgitation. Aortic valve sclerosis is present. There is trace tricuspid valve regurgitation. BP: 206 / 97 HR: 89 Rhythm: Sinus MEASUREMENTS (Male / Female) Normal Values Technical Quality:Fair 2D ECHO LV Diastolic Diameter PLAX 3.2 cm 4.2 - 5.9 / 3.9 - 5.3 cm LV Systolic Diameter PLAX 2.1 cm IVS Diastolic Thickness 1.2 cm 0.6 - 1.0 / 0.6 - 0.9 cm LVPW Diastolic Thickness 1.2 cm 0.6 - 1.0 / 0.6 - 0.9 cm LV Relative Wall Thickness 0.7 LVOT Diameter 2.2 cm Aortic Root Diameter 3.0 cm LA Systolic Diameter LX 3.2 cm 3.0 - 4.0 / 2.7 - 3.8 cm DOPPLER AV Peak Velocity 190.5 cm/s AV Peak Gradient 14.5 mmHg AV Mean Gradient 8.0 mmHg AV Velocity Time Integral 36.8 cm LVOT Peak Velocity 148.0 cm/s LVOT Peak Gradient 8.8 mmHg LVOT Velocity Time Integral 28.0 cm AV Area Cont Eq vti 2.9 cm AV Area Cont Eq pk 3.0 cm Mitral E Point Velocity 91.7 cm/s Mitral A Point Velocity 135.0 cm/s Mitral E to A Ratio 0.7 LV E' Lateral Velocity 4.3 cm/s Mitral E to LV E' Lateral Ratio 21.4 LV E' Septal Velocity 6.0 cm/s Mitral E to LV E' Septal Ratio 15.2 TR Peak Velocity 248.0 cm/s TR Peak Gradient 25.0 mmHg Right Atrial Pressure 10.0 mmHg Pulmonary Artery Systolic Pressu 34.6 mmHg Right Ventricular Systolic Press 34.6 mmHg PV Peak Velocity 53.4 cm/s PV Peak Gradient 1.1 mmHg FINDINGS LEFT VENTRICLE Normal left ventricular size. Mild concentric left ventricular hypertrophy. The left ventricular systolic function is hyperdynamic with an estimated ejection fraction in the ra nge of 65- 70%. LEFT ATRIUM The left atrial size is moderately dilated. MITRAL VALVE [id number] mitral valve regurgitation. AORTIC VALVE Aortic valve sclerosis is present. TRICUSPID VALVE There is trace tricuspid valve regurgitation. Debora Heart MD, FACC (Electronically Signed) Final Date:29 September 2017 17:41
--- NOTE | 2017-09-29 19:12 | EKG ---
Date Performed: 09/28/2017 Time Performed: 08:04:08 PTAGE: 77 years EKG: Sinus rhythm WITH FIRST DEGREE AV BLOCK MARKED RIGHT AXIS DEVIATION LOW QRS VOLTAGE IN EXTREMITY LEADS SEPTAL BRYCE CARDIAL INFARCTION ABNORMAL ECG Since PREVIOUS TRACING , no significant change noted PREVIOUS TRACIN03/23/2004 07.58 DOCTOR: Clau Kamara Interpretating Date/Time 09/29/2017 19:10:00
[2017-09-29] MEDS: ATORVASTATIN 80 MG TAB PO SCH (20:21)
[2017-09-29] MEDS ORDERED: TEMAZEPAM 7.5 MG CAP PO ONE (22:45)
[2017-09-29 22:46] LABS: HEMOGLOBIN A1a 1.8 %; HEMOGLOBIN A1b 1.9 %; HEMOGLOBIN Ao 84.8 %; HEMOGLOBIN LA1C 1.5 %; HEMOGLOBIN P3 3.5 %
[2017-09-30] VITALS (8 sets, daily range): BP systolic 138–194; BP diastolic 65–89; PULSE 74–82; RESP 18–22; TEMP 97.3–98.3; O2SAT 92–97
[2017-09-30] MEDS: ACETAMINOPHEN 325 MG TAB PO PRN ×3 (01:04→18:08)
[2017-09-30] MEDS: LEVOTHYROXINE SODIUM 112 MCG TAB PO SCH (06:16)
[2017-09-30] MEDS: LEVOTHYROXINE SODIUM 100 MCG TAB PO SCH (06:16)
[2017-09-30] MEDS: LEVOTHYROXINE SODIUM 50 MCG TAB PO SCH (06:16)
[2017-09-30] MEDS: INSULIN ASPART SUPPLEMENTAL SCALE SQ SCH ×4 (08:00→21:00)
[2017-09-30] MEDS: REMOVE OLD PATCH T-DERMAL SCH (08:33)
[2017-09-30] MEDS: NICOTINE 21 MG/24 HR PATCH T-DERMAL SCH (08:33)
[2017-09-30] MEDS: CALCITRIOL 0.25 MCG CAP PO SCH (08:34)
[2017-09-30] MEDS: ASPIRIN 81 MG CHEW TAB PO SCH (08:34)
[2017-09-30] MEDS: GABAPENTIN 100 MG CAP PO SCH ×2 (08:34→20:09)
[2017-09-30] MEDS: POTASSIUM CHLORIDE 20 MEQ CONTROLLED RELEASE TAB PO SCH (08:35)
[2017-09-30] MEDS: DOCUSATE SODIUM 50 MG/SENNA 8.6 MG TAB PO SCH ×2 (08:35→20:09)
[2017-09-30] MEDS: CALCIUM/VITAMIN D 250 MG/125 U TAB PO SCH ×2 (08:35→20:09)
[2017-09-30] MEDS: FUROSEMIDE 40 MG TAB PO SCH (08:35)
[2017-09-30] MEDS: MAGNESIUM OXIDE 400 MG TAB PO SCH (08:35)
[2017-09-30] MEDS: SODIUM CHLORIDE 0.9% FLUSH 5 ML FLUSH IV FLUSH SCH ×2 (08:36→20:08)
--- NOTE | 2017-09-30 08:48 | HHI.PR ---
Subjective Remarks Follow-up for TIA. Patient is currently doing well. Denies any chest pain, shortness of breath, fever or chills. She only has 2 days left for SNF. She does not wish to go to SNF due to high co-pay. Objective Vitals Vital Signs Date Time Temp Pulse Resp B/P (MAP) Pulse Ox O2 Delivery O2 Flow Rate FiO2 09/30/17 08:00 97.9 79 18 168/79 (108) 97 Manual Cuff/Auscultation 09/30/17 04:00 98.0 74 19 138/65 (89) 94 09/30/17 00:00 97.4 82 18 147/80 (102) 93 09/29/17 23:00 82 09/29/17 20:30 82 09/29/17 20:00 98.3 87 18 126/69 (88) 93 09/29/17 16:53 98.1 88 16 129/64 (85) 93 09/29/17 16:35 85 09/29/17 16:24 93 21 09/29/17 12:30 98.1 89 16 221/102 (141) 95 206/97 (133) 09/29/17 11:54 97.2 88 22 195/95 (128) 95 I/O 09/29/17 09/29/17 09/29/17 09/30/17 09/30/17 09/30/17 07:00 15:00 23:00 07:00 15:00 23:00 Intake Total 480 ml Balance 480 ml Intake Oral 480 ml # Voids 2 Result Diagram: 09/29/17 0418 09/29/17 0418 Imaging Last Impressions Lower Extremity Ultrasound 09/29/17 0000 Signed Impressions: Service Date/Time: Friday, September 29, 2017 07:51 - CONCLUSION: Normal examination. Baljinder Croft Jr., MD Head Magnetic Resonance Angiography 09/28/17 0000 Signed Impressions: Service Date/Time: Thursday, September 28, 2017 11:16 - CONCLUSION: 1. 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 2. Otherwise normal MRA. Rich Ayala MD Head CT 09/28/17 0000 Signed Impressions: Service Date/Time: Thursday, September 28, 2017 08:03 - CONCLUSION: 1. Central volume loss with chronic white matter changes characteristic of microvascular ischemic disease. 2. No evidence of acute infarct, hemorrhage, mass or edema. Rich Ayala MD Chest X-Ray 09/28/17 0000 Signed Impressions: Service Date/Time: Thursday, September 28, 2017 12:48 - CONCLUSION: 1. Lungs are hyperinflated but there is no acute infiltrate to explain current clinical symptoms. 2. Heart size is prominent but well compensated. 3. Calcification of the aortic arch. There may be some calcification of the pulmonary artery as well. Dylan Shepard MD Carotid Artery Ultrasound 09/28/17 0000 Signed Impressions: Service Date/Time: Thursday, September 28, 2017 14:27 - CONCLUSION: 1. Dense atherosclerotic calcification in both distal common carotid arteries extending up into the bifurcations. Calcification also extends up into the internal and the left. 2. Despite the dense calcification, no Doppler findings of a hemodynamically significant stenosis. Antegrade flow in both vertebral arteries Dylan Shepard MD Brain MRI 09/28/17 Signed Impressions: Service Date/Time: Thursday, September 28, 2017 11:16 - CONCLUSION: 1. Moderate white matter hyperintensity in the brainstem and cerebral hemispheres characteristic of chronic microvascular ischemic disease. 2. Tiny focus of restricted diffusion in the right insula which is adjacent to a middle cerebral artery vessel and may be artifactual. 3. No evidence of acute infarct or hemorrhage correspond to the patient's symptoms. Rich Ayala MD Objective Remarks GENERAL: Alert, oriented 3, NAD. SKIN: Warm and dry. HEAD: Normocephalic. EYES: No scleral icterus. No injection or drainage. NECK: Supple, trachea midline. No JVD or lymphadenopathy. CARDIOVASCULAR: Regular rate and rhythm without murmurs, gallops, or rubs. RESPIRATORY: Breath sounds equal bilaterally. No accessory muscle use. GASTROINTESTINAL: Abdomen soft, non-tender, nondistended. MUSCULOSKELETAL: No cyanosis, or edema. BACK: Nontender without obvious deformity. No CVA tenderness. Procedures None A/P Problem List: (1) TIA (transient ischemic attack) ICD Code: G45.9 - Transient cerebral ischemic attack, unspecified Status: Acute (2) Hypertensive urgency ICD Code: I16.0 - Hypertensive urgency Status: Acute Assessment and Plan 77-year-old female with history of HTN, HLD, DM, COPD, CVA, tobacco use, hypothyroidism, GERD, presents from [facility] as a stroke alert with acute onset of left facial droop and left arm weakness 30minutes prior to arrival. Transient ischemic attack -left facial droop and left arm weakness prior to arrival, now resolved. No TPA given. -Head CT shows central volume loss with chronic white matter changes characteristic of microvascular ischemic disease; no acute infarct/hemorrhage -EKG shows sinus rhythm -Unremarkable brain MRI. MRA brain shows a tiny aneurysm which according to neurologist incidental. Repeat MRA in 6 months. -Echo normal. -Continue aspirin 162 milligrams daily, atorvastatin 80 mg daily at bedtime Accelerated Hypertension: BP 190s/120s upon arrival. With neurological deficit as above. Improving but suboptimal control. - Continue Amlodipine to 5 mg , Lasix 40 mg daily - Add Lisinopril 10mg Qday. - IV Vasotec, Clonidine PRN. Diabetes Mellitus: chronic -HgbA1c 6.2 -monitor Accu-checks, cover with SSI -Will consider Metformin upon discharge. Hypokalemia: K 3.1, suspect secondary to patient's lasix -given po KCl replacement Hypothyroidism - continue levothyroxine 212 g daily. Tobacco Use: chronic -counseled on cessation -nicotine patch Full code. SCDs. Problem Qualifiers (1) TIA (transient ischemic attack): Qualified Codes: G45.9 - Transient cerebral ischemic attack, unspecified Fredy Coello DO Sep 30, 2017 08:48
[2017-09-30] MEDS ORDERED: amLODIPine BESYLATE 5 MG TAB PO SCH (09:00)
[2017-09-30] MEDS ORDERED: LISINOPRIL 10 MG TAB PO ONE (12:30)
[2017-09-30] MEDS: ATORVASTATIN 80 MG TAB PO SCH (20:09)
[2017-09-30] MEDS: cloNIDine HCL 0.1 MG TAB PO PRN (22:27)
[2017-10-01] VITALS: BP 116/59; PULSE 82; RESP 17; TEMP 97.6; O2SAT 94
[2017-10-01 04:00] VITALS: BP 142/82; PULSE 72; RESP 19; TEMP 97.7; O2SAT 96
[2017-10-01] MEDS: LEVOTHYROXINE SODIUM 112 MCG TAB PO SCH (05:46)
[2017-10-01] MEDS: LEVOTHYROXINE SODIUM 100 MCG TAB PO SCH (05:46)
[2017-10-01] MEDS: LEVOTHYROXINE SODIUM 50 MCG TAB PO SCH (05:46)
[2017-10-01 07:24] VITALS: PULSE 77
[2017-10-01 08:00] VITALS: BP 137/84; PULSE 80; RESP 18; TEMP 97.7; O2SAT 95
[2017-10-01] MEDS: INSULIN ASPART SUPPLEMENTAL SCALE SQ SCH ×3 (08:00→17:00)
[2017-10-01] MEDS: DOCUSATE SODIUM 50 MG/SENNA 8.6 MG TAB PO SCH (08:59)
[2017-10-01] MEDS: NICOTINE 21 MG/24 HR PATCH T-DERMAL SCH (08:59)
[2017-10-01] MEDS ORDERED: LISINOPRIL 10 MG TAB PO SCH (09:00)
[2017-10-01] MEDS ORDERED: amLODIPine BESYLATE 5 MG TAB PO SCH (09:00)
[2017-10-01] MEDS: MAGNESIUM OXIDE 400 MG TAB PO SCH (09:00)
[2017-10-01] MEDS: CALCITRIOL 0.25 MCG CAP PO SCH (09:00)
[2017-10-01] MEDS: POTASSIUM CHLORIDE 20 MEQ CONTROLLED RELEASE TAB PO SCH (09:00)
[2017-10-01] MEDS: CALCIUM/VITAMIN D 250 MG/125 U TAB PO SCH (09:00)
[2017-10-01] MEDS: ASPIRIN 81 MG CHEW TAB PO SCH (09:00)
[2017-10-01] MEDS: GABAPENTIN 100 MG CAP PO SCH (09:00)
[2017-10-01] MEDS: SODIUM CHLORIDE 0.9% FLUSH 5 ML FLUSH IV FLUSH SCH (09:01)
[2017-10-01] MEDS: FUROSEMIDE 40 MG TAB PO SCH (09:01)
[2017-10-01] MEDS: REMOVE OLD PATCH T-DERMAL SCH (09:07)
--- NOTE | 2017-10-01 10:04 | HHI.PR ---
Subjective Remarks Follow-up for TIA. Objective Vitals Vital Signs Date Time Temp Pulse Resp B/P (MAP) Pulse Ox O2 Delivery O2 Flow Rate FiO2 10/01/17 08:00 97.7 80 18 137/84 (101) 95 10/01/17 07:24 77 10/01/17 04:00 97.7 72 19 142/82 (102) 96 10/01/17 00:00 97.6 82 17 116/59 (78) 94 09/30/17 23:00 82 09/30/17 20:00 97.3 76 22 194/89 (124) 96 188/88 (121) 09/30/17 18:01 92 21 09/30/17 16:00 98.3 82 18 178/79 (112) 92 09/30/17 12:00 97.8 76 20 138/80 (99) 95 I/O 09/30/17 09/30/17 09/30/17 10/01/17 10/01/17 10/01/17 07:00 15:00 23:00 07:00 15:00 23:00 # Voids 1 1 Result Diagram: 09/29/17 0418 09/29/17 0418 Objective Remarks GENERAL: Alert, oriented 3, NAD. SKIN: Warm and dry. HEAD: Normocephalic. EYES: No scleral icterus. No injection or drainage. NECK: Supple, trachea midline. No JVD or lymphadenopathy. CARDIOVASCULAR: Regular rate and rhythm without murmurs, gallops, or rubs. RESPIRATORY: Breath sounds equal bilaterally. No accessory muscle use. GASTROINTESTINAL: Abdomen soft, non-tender, nondistended. MUSCULOSKELETAL: No cyanosis, or edema. BACK: Nontender without obvious deformity. No CVA tenderness. Procedures None A/P Problem List: (1) TIA (transient ischemic attack) ICD Code: G45.9 - Transient cerebral ischemic attack, unspecified Status: Acute (2) Hypertensive urgency ICD Code: I16.0 - Hypertensive urgency Status: Acute Assessment and Plan 77-year-old female with history of HTN, HLD, DM, COPD, CVA, tobacco use, hypothyroidism, GERD, presents from [facility] as a stroke alert with acute onset of left facial droop and left arm weakness 30minutes prior to arrival. Transient ischemic attack -left facial droop and left arm weakness prior to arrival, now resolved. No TPA given. -Head CT shows central volume loss with chronic white matter changes characteristic of microvascular ischemic disease; no acute infarct/hemorrhage -EKG shows sinus rhythm -Unremarkable brain MRI. MRA brain shows a tiny aneurysm which according to neurologist incidental. Repeat MRA in 6 months. -Echo normal. -Continue aspirin 162 milligrams daily, atorvastatin 80 mg daily at bedtime Accelerated Hypertension: BP 190s/120s upon arrival. With neurological deficit as above. Improving but suboptimal control. - Continue Amlodipine to 5 mg , Lasix 40 mg daily - Add Lisinopril 10mg Qday. - IV Vasotec, Clonidine PRN. Diabetes Mellitus: chronic -HgbA1c 6.2 -monitor Accu-checks, cover with SSI -Will consider Metformin upon discharge. Hypokalemia: K 3.1, suspect secondary to patient's lasix -given po KCl replacement Hypothyroidism - continue levothyroxine 212 g daily. Tobacco Use: chronic -counseled on cessation -nicotine patch Full code. SCDs. Problem Qualifiers (1) TIA (transient ischemic attack): Qualified Codes: G45.9 - Transient cerebral ischemic attack, unspecified Fredy Coello DO Oct 01, 2017 10:04
--- NOTE | 2017-10-01 11:11 | HHI.FF ---
Face to Face Verification Diagnosis: (1) TIA (transient ischemic attack) (2) Hypertensive urgency (3) Dyslipidemia (4) Aneurysm Physical Therapy Order: Evaluate and Treat, Improve ambulation, Strength and gait training Occupational Therapy Order: Evaluate and Treat, Improve ADL, Gross motor coordination, Fine motor coordination Home Health Nursing Order: Signs/symptoms of disease process Medication education-adverse effect Nursing assessment with vital signs Home Health Aide Order: To Assist In: Bathing and personal care, medical cash poster and meal prep Quality Assurance Analyst Order: To Evaluate: Living conditions/environment, Support services Order: To Provide: Long range planning, Community services I have seen patient Audrey Guerrero on 10/01/17. My clinical findings support the need for the requested home health care services because: Ltd mobility - disease progression Deconditioned w/ increased weakness Limited ability to care for self Need for psychosocial assistance High risk of falls Infection w/ risk of complications I certify that my clinical findings support that this patient is homebound because: Impaired cognitive ability/safety Unsteady gait/balance Unsafe to leave home unassisted Unable to use public transportation Fredy Coello DO Oct 01, 2017 11:11
[2017-10-01] MEDS ORDERED: LISI10TA3 PO (11:14)
[2017-10-01] MEDS ORDERED: K-TA10TA PO (11:15)
[2017-10-01 12:00] VITALS: BP 131/74; PULSE 81; RESP 20; TEMP 97.6; O2SAT 93
[2017-10-01] MEDS ORDERED: WHEEMIS3 (13:52)
[2017-10-01 16:00] VITALS: BP 138/71; PULSE 77; RESP 18; TEMP 98.4; O2SAT 93
--- NOTE | 2017-10-01 22:39 | HHI.DS ---
Discharge Summary Admission Date Sep 29, 2017 at 09:34 Discharge Date: Oct 01, 2017 Admitting Diagnosis (1) TIA (transient ischemic attack) ICD Code: G45.9 - Transient cerebral ischemic attack, unspecified Diagnosis: Principal Status: Acute (2) Hypertensive urgency ICD Code: I16.0 - Hypertensive urgency Status: Acute Procedures None Brief History - From Admission 77-year-old female with history of hypertension, hyperlipidemia, diabetes mellitus, tobacco use, COPD, CVA, hypothyroidism, GERD, presents from [facility] as a stroke alert with acute onset of left facial droop and left arm weakness 30minutes prior to arrival. Symptoms completely resolved by the time the patient arrived to the ER, therefore stroke alert was cancelled and no TPA was given. The patient states she was sitting up in a chair this morning and she just felt "something strange" as if she was "going to nothing". She tried to call out for the nurse. She states she felt so weak that she could hardly get a breath. The patient does not recall any facial droop or unilateral numbness/weakness however nurse from [facility] reported left facial droop, drooling, and left arm weakness. The patient reports she has been having intermittent frontal headaches recently, rated 8-9/10, associated with some nausea but no vomiting. She states these are her typical headaches, usually relieved by Excedrin. Denies any recent fevers. She does not take any blood thinners. She continues to smoke tobacco. The patient reports she has been at [facility] for right leg weakness and falls. She states she is mostly wheelchair bound because of the weakness. She has no other medical complaints at this time. CBC/BMP: 09/29/17 0418 09/29/178 Significant Findings Laboratory Tests Test 09/29/17 04:18 White Blood Count 13.5 TH/MM3 (4.0-11.0) Red Blood Count 3.37 MIL/MM3 (4.00-5.30) Hemoglobin 10.6 GM/DL (11.6-15.3) Hematocrit 31.7 % (35.0-46.0) Platelet Count 519 TH/MM3 (150-450) Lymphocytes # (Auto) 4.9 TH/MM3 (1.0-4.8) Monocytes # (Auto) 1.0 TH/MM3 (0-0.9) Creatinine 0.49 MG/DL (0.50-1.00) Total Protein 4.8 GM/DL (6.4-8.2) Albumin 1.0 GM/DL (3.4-5.0) Calcium Level 8.4 MG/DL (8.5-10.1) Total Bilirubin LESS THAN 0.1 MG/DL Sodium Level 134 MEQ/L (136-145) Triglycerides Level 329 MG/DL (42-150) Cholesterol Level 227 MG/DL (120-200) LDL Cholesterol 112 MG/DL (0-99) Imaging Last Impressions Lower Extremity Ultrasound 09/29/17 0000 Signed Impressions: Service Date/Time: Friday, September 29, 2017 07:51 - CONCLUSION: Normal examination. Baljinder Croft Jr., MD Head Magnetic Resonance Angiography 09/28/17 0000 Signed Impressions: Service Date/Time: Thursday, September 28, 2017 11:16 - CONCLUSION: 1. 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 2. Otherwise normal MRA. Rich Ayala MD Head CT 09/28/17 0000 Signed Impressions: Service Date/Time: Thursday, September 28, 2017 08:03 - CONCLUSION: 1. Central volume loss with chronic white matter changes characteristic of microvascular ischemic disease. 2. No evidence of acute infarct, hemorrhage, mass or edema. Rich Ayala MD Chest X-Ray 09/28/17 0000 Signed Impressions: Service Date/Time: Thursday, September 28, 2017 12:48 - CONCLUSION: 1. Lungs are hyperinflated but there is no acute infiltrate to explain current clinical symptoms. 2. Heart size is prominent but well compensated. 3. Calcification of the aortic arch. There may be some calcification of the pulmonary artery as well. Dylan Shepard MD Carotid Artery Ultrasound 09/28/17 0000 Signed Impressions: Service Date/Time: Thursday, September 28, 2017 14:27 - CONCLUSION: 1. Dense atherosclerotic calcification in both distal common carotid arteries extending up into the bifurcations. Calcification also extends up into the internal and the left. 2. Despite the dense calcification, no Doppler findings of a hemodynamically significant stenosis. Antegrade flow in both vertebral arteries Dylan Shepard MD Brain MRI 09/28/17 0000 Signed Impressions: Service Date/Time: Thursday, September 28, 2017 11:16 - CONCLUSION: 1. Moderate white matter hyperintensity in the brainstem and cerebral hemispheres characteristic of chronic microvascular ischemic disease. 2. Tiny focus of restricted diffusion in the right insula which is adjacent to a middle cerebral artery vessel and may be artifactual. 3. No evidence of acute infarct or hemorrhage correspond to the patient's symptoms. Rich Ayala MD PE at Discharge GENERAL: Alert, oriented 3, NAD. SKIN: Warm and dry. HEAD: Normocephalic. EYES: No scleral icterus. No injection or drainage. NECK: Supple, trachea midline. No JVD or lymphadenopathy. CARDIOVASCULAR: Regular rate and rhythm without murmurs, gallops, or rubs. RESPIRATORY: Breath sounds equal bilaterally. No accessory muscle use. GASTROINTESTINAL: Abdomen soft, non-tender, nondistended. MUSCULOSKELETAL: No cyanosis, or edema. BACK: Nontender without obvious deformity. No CVA tenderness. Pt update on day of discharge Patient is doing well. No acute concerns. Wants to go home. Hospital Course 77-year-old female with history of HTN, HLD, DM, COPD, CVA, tobacco use, hypothyroidism, GERD, presents from [facility] as a stroke alert with acute onset of left facial droop and left arm weakness 30minutes prior to arrival. Transient ischemic attack -left facial droop and left arm weakness prior to arrival, now resolved. No TPA given. -Head CT shows central volume loss with chronic white matter changes characteristic of microvascular ischemic disease; no acute infarct/hemorrhage -EKG shows sinus rhythm -Unremarkable brain MRI. MRA brain shows a tiny aneurysm which according to neurologist incidental. Repeat MRA in 6 months. -Echo normal. -Continue aspirin 162 milligrams daily, atorvastatin 80 mg daily at bedtime Accelerated Hypertension: BP 190s/120s upon arrival. Much better control in the hospital. - Continue Amlodipine to 5 mg , Lasix 40 mg daily - Added Lisinopril 10mg Qday. - IV Vasotec, Clonidine PRN. Diabetes Mellitus: chronic -HgbA1c 6.2 -monitor Accu-checks, cover with SSI -Continue Nateglinide 120mg TIDAC upon discharge. Hypokalemia: K 3.1, suspect secondary to patient's lasix -given po KCl replacement Hypothyroidism - continue levothyroxine. Tobacco Use: chronic -counseled on cessation -nicotine patch Full code. SCDs. Patient opted to go home with home health since SNF. Pt Condition on Discharge: Stable Discharge Disposition: Disch w/ Home Health Serv Discharge Time: > 30 minutes Discharge Instructions DIET: Follow Instructions for: Heart Healthy Diet, Diabetic Diet Activities you can perform: Regular-No Restrictions Follow up Referrals: Neurology - 1 Week with Romel Richardson PhD MD PCP Follow-up - 1 Week New Medications: Potassium Chloride ER (K-Tab) 10 Meq Tab 10 MEQ PO DAILY for Electrolyte Replacement, #30 TAB 0 Refills Wheelchair (Wheelchair) 1 Mis Mis EA .ROUTE DIRECTED, #1 0 Refills Amlodipine (Norvasc) 5 Mg Tab 5 MG PO DAILY for Blood Pressure Management, #30 TAB Aspirin (Tgt Aspirin) 81 Mg Chw 162 MG PO DAILY for Blood Clot Prevention, #30 EA Atorvastatin (Atorvastatin) 80 Mg Tab 80 MG PO HS for Cholesterol Management, #30 TAB Levothyroxine (Synthroid) 100 Mcg Tab 100 MCG PO DAILY@0600 for Thyroid, #30 TAB Levothyroxine (Synthroid) 112 Mcg Tab 112 MCG PO DAILY@0600 for Thyroid, #30 TAB Levothyroxine (Synthroid) 50 Mcg Tab 50 MCG PO DAILY@0600 for Thyroid, #30 TAB Lisinopril (Lisinopril) 10 Mg Tab 10 MG PO DAILY for Blood Pressure Management, #30 TAB 5 Refills Continued Medications: Albuterol Neb (Albuterol Neb) 2.5 Mg/3 Ml Neb 2.5 MG NEB Q6HR PRN for SOB/WHEEZING, #1 NEBULE 0 Refills Calcitriol (Calcitriol) 0.25 Mcg Cap 0.25 MCG PO DAILY for Calcium Supplement, #30 CAP 0 Refills Calcium Carbonate-Vitamin D Chew (Caltrate 600+D Chew) 600-400 Mg-Unit Chew 1 TAB PO BID for Nutritional Supplement, EA 0 Refills Docusate Sodium (Docusate Sodium) 100 Mg Cap 100 MG PO BID PRN for CONSTIPATION, #60 CAP 0 Refills Furosemide (Lasix) 40 Mg Tab 40 MG PO DAILY, #30 TAB 0 Refills Gabapentin (Gabapentin) 100 Mg Cap 100 MG PO BID, #60 CAP 0 Refills Magnesium Oxide (Magnesium Oxide) 400 Mg Tab 400 MG PO DAILY for Nutritional Supplement, TAB 0 Refills Nateglinide (Nateglinide) 120 Mg Tab 120 MG PO TIDAC for Blood Sugar Management, #90 TAB 0 Refills Omeprazole (Omeprazole) 20 Mg Tab 20 MG PO DAILY PRN for GERD , #30 TAB 0 Refills Temazepam (Temazepam) 7.5 Mg Cap 7.5 MG PO HS PRN for INSOMNIA, #30 CAP 0 Refills Discontinued Medications: Atorvastatin (Atorvastatin) 40 Mg Tab 40 MG PO HS for Cholesterol Management, #30 TAB 0 Refills Levothyroxine (Levothyroxine) 125 Mcg Tab 125 MCG PO DAILY for Thyroid, #30 TAB 0 Refills Fredy Coello DO Oct 01, 2017 22:39
== END 2017-10-01 19:42 | disposition home or self-care (01) | DRG 69 ==
LOC: NEPE 07:55 → INTOOBSV 10:39 → NEDA 10:39 → NEPHCDU 13:00 → NEPFCDU 19:22 → OBSVTOIN 09-29 09:34 → N05A 09-29 12:26
PROVIDERS: ADMIT Hospitalist; ATTEND Hospitalist
DX: G45.9 Transient cerebral ischemic attack, unspecified (principal); I67.1 Cerebral aneurysm, nonruptured; J44.9 Chronic obstructive pulmonary disease, unspecified; E87.1 Hypo-osmolality and hyponatremia; E11.9 Type 2 diabetes mellitus without complications; E03.9 Hypothyroidism, unspecified; E78.5 Hyperlipidemia, unspecified; E87.6 Hypokalemia; I10 Essential (primary) hypertension; I16.0 Hypertensive urgency; K21.9 Gastro-esophageal reflux disease without esophagitis; F17.200 Nicotine dependence, unspecified, uncomplicated; Z79.82 Long term (current) use of aspirin; Z79.899 Other long term (current) drug therapy; Z86.73 Personal history of transient ischemic attack (TIA), and cerebral infarction without residual deficits
CPT/HCPCS: 70450; 70544; 70551; 71010; 80048; 80053; 80061; 82948; 83036; 83735; 85025; 85610; 85730; 93005; 93306; 93880; 93971; 94150; 96374; G8987-GP; G8988-GP; G8996-GN; G8997-GN; J1815; J2405; J7030; L1830